=== PATIENT | female | born 1975 | race Caucasian/White ===

== ENCOUNTER 2020-07-02 15:37 | Outpatient (CLI) | payer BC | END 2020-07-02 15:38 | disposition home or self-care (01) | LOC: CSHMAMMO 15:37 | PROVIDERS: ATTEND Obstetrics & Gynecology | DX: Z12.31 Encounter for screening mammogram for malignant neoplasm of breast (principal) | CPT/HCPCS: 77063; 77067 ==

== ENCOUNTER 2022-08-09 14:03 | Outpatient (CLI) | payer BC | END 2022-08-09 14:04 | disposition home or self-care (01) | LOC: CSHRAD 14:03 | PROVIDERS: ATTEND Family Medicine | DX: M79.672 Pain in left foot (principal) ==

== ENCOUNTER 2023-03-22 10:01 | Outpatient (CLI) | payer BC | END 2023-03-22 10:02 | disposition home or self-care (01) | LOC: CSHMAMMO 10:01 | PROVIDERS: ATTEND Family Medicine | DX: Z12.31 Encounter for screening mammogram for malignant neoplasm of breast (principal); M85.89 Other specified disorders of bone density and structure, multiple sites | CPT/HCPCS: 77063; 77067; 77080 ==

== ENCOUNTER 2024-03-24 12:13 | Outpatient (CLI) | payer BC | END 2024-03-24 12:14 | disposition home or self-care (01) | LOC: CSHMAMMO 12:13 | PROVIDERS: ATTEND Family Medicine | DX: Z12.31 Encounter for screening mammogram for malignant neoplasm of breast (principal) | CPT/HCPCS: 77063; 77067 ==

== ENCOUNTER 2025-03-25 10:25 | Outpatient (CLI) | payer BC | END 2025-03-25 10:26 | disposition home or self-care (01) | LOC: CSHMAMMO 10:25 | PROVIDERS: ATTEND Family Medicine | DX: Z12.31 Encounter for screening mammogram for malignant neoplasm of breast (principal) | CPT/HCPCS: 77063; 77067 ==